=== PATIENT | female | born 1995 | race Caucasian/White ===

== ENCOUNTER 2020-03-14 05:48 | Day surgery (SDC) | payer BC ==
[2020-03-10 08:40] VITALS: BMI 22.9
--- NOTE | 2020-03-13 09:48 | P.HPOB ---
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 She now presents for treatment by LEEP excision of this area. Past Medical History Past Medical History: No Reported History Additional Past Medical History / Comment(s): RECENT ABN PAP History of Any Multi-Drug Resistant Organisms: None Reported Additional Past Surgical History / Comment(s): HAD WISDOM TEETH REMOVED WITH ANESTHESIA Past Anesthesia/Blood Transfusion Reactions: No Reported Reaction Past Psychological History: No Psychological Hx Reported Smoking Status: Never smoker Past Alcohol Use History: None Reported Past Drug Use History: None Reported - Past Family History Mother Family Medical History: No Reported History Medications and Allergies Home Medications Medication Instructions Recorded Confirmed Type Escitalopram [Lexapro] 10 mg PO DAILY 03/10/20 03/10/20 History Etonogestrel/Ethinyl Estradiol 1 each VG Q21D 03/10/20 03/10/20 History [Nuvaring Vaginal Ring] Allergies Allergy/AdvReac Type Severity Reaction Status Date / Time No Known Allergies Allergy Verified 03/10/20 08:33 Exam - OBG Physical Exam Abdomen: bowel sounds normal, no diffuse tenderness, no bruit present, no guarding noted, no hepatomegaly, no splenomegaly, no mass Vulva: both: normal Vagina: normal moisture, no discharge Cervix: no lesion (Circumferiental acetowhite changes of the ectocervix.), no discharge Uterus: normal size Results Biopsies of the cervix at 6 and 12 oclock show JULIETTE II (HGSIL). Fragment of dysplastic cells on ECC as well. Assessment and Plan Assessment: This is a pleasant 24 yr female with HGSIL of the ectocervix and possibly endocervix. Plan is colpscopy with LEEP excision of the ecto/endocervix. Kelsea and I have discussed this surgery in detail including the risks: infection, bleeding, possible cervical incompetence and future loss. All of her questions were answered and a written consent obtained. (1) High grade squamous intraepithelial cervical dysplasia Status: Acute Code(s): R87.613 - HIGH GRADE INTREPITH LESION CYTO SMR CRVX (HGSIL) SNOMED Code(s): 129710570
[~2020-03-14 05:48] MED LIST: DEXAMETHASONE SOD PHOSPHATE 10 MG/ML 1 ML VIAL IV ONE; HYDROmorphone 0.5 MG/0.5 ML SYRINGE IVP PRN; LACTATED RINGERS 1,000 ML IV SCH; LIDOCAINE 1% (10MG/ML) FOR IV START INTRADERMA PRN; ONDANSETRON 4 MG/2 ML VIAL IVP ONE; Pre Op ABX Message 1 EACH MISC MISCELLANE ONE; SCOPOLAMINE 1.5MG/72HR PATCH TRANSDERM ONE
[2020-03-14] MEDS ORDERED: LACTATED RINGERS 1,000 ML IV ONE (06:09)
[2020-03-14] MEDS ORDERED: LIDOCAINE 1% (10MG/ML) FOR IV START INTRADERMA ONE (06:13)
[2020-03-14] MEDS ORDERED: KETOROLAC 15 MG/ML 1 ML VIAL ONE (06:51)
[2020-03-14] MEDS ORDERED: fentaNYL (PF) 50 MCG/ML 2 ML AMP ONE (06:51)
[2020-03-14] MEDS ORDERED: MIDAZOLAM 2 MG/2 ML VIAL ONE (06:51)
[2020-03-14] MEDS ORDERED: PROPOFOL 10 MG/ML 20 ML VIAL IV ONE (06:51)
[2020-03-14] MEDS ORDERED: LIDOCAINE 1% INJ 10MG/ML (20 ML MDV) ONE (06:51)
[2020-03-14] MEDS ORDERED: IODINE/POTASS IOD (LUGOLS) BOTTLE TOPICAL ONE (07:11)
[2020-03-14] MEDS ORDERED: FERRIC SUBSULFATE (MONSELS) JAR TOPICAL ONE (07:11)
[2020-03-14 07:32] VITALS: TEMP 97.3
--- NOTE | 2020-03-14 07:38 | P.OP ---
Date of Procedure: 03/14/20 Preoperative Diagnosis: High grade ectocervix and endocervical dysplasia Postoperative Diagnosis: Same Procedure(s) Performed: Colposcopy with LEEP excision of the ectocervix and endocervix Anesthesia: MAC Surgeon: Constantin Lewis Estimated Blood Loss (ml): 20 Urine output (ml): 50 Pathology: other (Ectocervix and endocervix) Condition: stable Disposition: PACU Indications for Procedure: Please see dictated H&P for intimate details of this patient's admission. Brief summary this is a pleasant 24-year-old 0 para 0 female with long- standing low-grade cervical dysplasia which most recently was biopsied and showed high-grade cervical dysplasia (JULIETTE-2) of the ectocervix possibly endocervix. Patient I discussed the surgery and risks including risks of infection, bleeding, possible cervical incompetence and possible loss. Operative Findings: This patient had acetowhite changes as demarcated in the office Description of Procedure: This patient is taken to the operating room where she is laid in the supine position. She subsequent has mask general anesthesia for an adequate level of anesthesia. She is placed in the dorsal lithotomy position. She has a vaginal perineal prep and drape. With this done I then drain her bladder for 50 mL of clear urine. The laser speculum was then placed in the vagina and the cervix is completely visualized. Colposcope is then brought into the field, and using Lugol solution the area of abnormality is demarcated. Using a large LEEP loop at a 60/70 cutting cautery setting one pass is made of the entire transformation zone was removed. Second small LEEP loop was then used to remove a small portion of the endocervix. This completed cauterization is done of the entire ecto and endocervical bed. Excellent hemostasis is noted. Monsel solution is applied for added hemostasis. Final inspection shows no bleeding. All counts are correct 3. There are no complications. Patient is awakened from anesthesia and taken recovery room in satisfactory condition.
[2020-03-14 08:14] VITALS: RESP 17
[2020-03-14 08:26] VITALS: BP 125/88; PULSE 50
== END 2020-03-14 09:38 | disposition home or self-care (01) ==
LOC: OR 05:48
PROVIDERS: ATTEND Obstetrics & Gynecology
DX: N87.1 Moderate cervical dysplasia (principal); F41.9 Anxiety disorder, unspecified; F32.9 Major depressive disorder, single episode, unspecified; Z98.890 Other specified postprocedural states; Z79.899 Other long term (current) drug therapy; Z97.5 Presence of (intrauterine) contraceptive device
CPT/HCPCS: 81025; 88305; 88307; 57461; J2250; J1100; J2405; J2001; J3010; J1885; J2704